=== PATIENT | male | born 1995 | race Asian ===

== ENCOUNTER 2019-02-02 13:02 | Emergency (ER) | payer OTHER ==
[2019-02-02] MEDS ORDERED: OXYMETAZOLINE NASAL SPRAY 0.05%,30ML ONE (13:09)
--- NOTE | 2019-02-02 13:09 | NUR ---
23 Y/O MALE BIB [employer] WITH C/O NOSEBLEED. PER REPORT PT WAS GETTING A TOOTH EXTRACTION AND THE ROOTS WERE LONGER AND OPENED A SINUS CAVITY. PT HAS HAD BLOODY NOSE AND EXPECTORATING BLOOD. NO ACUTE DISTRESS NOTED. VSS. [employer] WITH PT
[2019-02-02] MEDS ORDERED: OXYMETAZOLINE NASAL SPRAY 0.05%, 15ML NAS ONE (13:30)
[2019-02-02] MEDS ORDERED: PLEASE ENTER ALLERGIES MC SCH (14:00)
--- NOTE | 2019-02-02 14:23 | NUR ---
BEDSIDE REPORT TO JULIANA MAHARAJ. RADIOLOGY CALLED REGARDING XRAY NEEDED. THEY WILL BE COMING TO TAKE PT.
[2019-02-02] MEDS ORDERED: ACETAMINOPHEN 500 MG TABLET PO ONE (14:30)
[2019-02-02] MEDS ORDERED: ACETAMINOPHEN 500 MG TABLET ONE (14:57)
[2019-02-02 15:06] VITALS: BP 106/64
== END 2019-02-02 16:03 | disposition home or self-care (01) ==
LOC: ED 14:57
DX: R04.0 Epistaxis (principal); F17.200 Nicotine dependence, unspecified, uncomplicated
CPT/HCPCS: 70210; 99283